=== PATIENT | male | born 1995 | race Caucasian/White ===

== ENCOUNTER 2017-07-17 08:55 | Emergency (ER) | payer OTHER ==
[~2017-07-17] VITALS: Ht 170.2 cm; Wt 66.8 kg
[2017-07-17 11:51] VITALS: BP 105/64
== END 2017-07-17 11:51 | disposition home or self-care (01) ==
LOC: ED 08:55
DX: R07.89 Other chest pain (principal); F12.90 Cannabis use, unspecified, uncomplicated; R10.9 Unspecified abdominal pain
CPT/HCPCS: Q0092

== ENCOUNTER 2017-11-26 18:13 | Emergency (ER) | payer MEDICAID ==
[~2017-11-26] VITALS: Ht 167.6 cm; Wt 70.8 kg
[2017-11-26 18:26] VITALS: BP 124/79; Ht 167.6 cm; Wt 70.8 kg
== END 2017-11-26 21:18 | disposition home or self-care (01) ==
LOC: ED 18:13
DX: J06.9 Acute upper respiratory infection, unspecified (principal); G89.29 Other chronic pain; M54.5 Low back pain; R10.9 Unspecified abdominal pain; F41.9 Anxiety disorder, unspecified; K29.70 Gastritis, unspecified, without bleeding
CPT/HCPCS: J1885; Q0162

== ENCOUNTER 2018-05-25 10:07 | Emergency (ER) | payer OTHER ==
[~2018-05-25] VITALS: Ht 167.6 cm; Wt 72.6 kg
[2018-05-25 10:14] VITALS: Ht 167.6 cm; Wt 72.6 kg
[2018-05-25 12:45] VITALS: BP 124/69
== END 2018-05-25 12:45 | disposition home or self-care (01) ==
LOC: ED 10:07
DX: S39.012A Strain of muscle, fascia and tendon of lower back, initial encounter (principal); X50.0XXA Overexertion from strenuous movement or load, initial encounter; Y93.89 Activity, other specified; Y92.89 Other specified places as the place of occurrence of the external cause; Y99.0 Civilian activity done for income or pay
CPT/HCPCS: J1885